=== PATIENT | female | born 1945 | race Caucasian/White ===

== ENCOUNTER 2017-07-30 11:05 | Inpatient (IN) | payer MEDICARE ==
[2017-07-30] MEDS: Sodium Chloride 0.9% 1,000 ML IV SCH ×2 (12:36→23:54)
[2017-07-30] MEDS ORDERED: Dextrose 50% Abboject 50 ML SYRINGE SLOW IVP PRN (13:42)
[2017-07-30] MEDS ORDERED: Dextrose 5% in Water 1,000 ML IV PRN (13:42)
[2017-07-30] MEDS ORDERED: Promethazine HCl 25 MG/ML VIAL IM PRN (13:42)
[2017-07-30] MEDS ORDERED: Ondansetron HCl/PF 4 MG/2 ML Vial IVP PRN (13:42)
[2017-07-30] MEDS ORDERED: metroNIDAZOLE 500 MG in Premix Bag 1 BAG IVPB SCH (14:00)
--- NOTE | 2017-07-30 14:04 | CON ---
DATE OF CONSULTATION: 07/30/2017. HISTORY OF PRESENT ILLNESS: This is a 71-year-old female who is fairly healthy, [facility] who presents with recent diagnosis of diverticulitis, a small abscess treated with antibiotic s as an outpatient and was lost to follow up for a week or so. She finally did follow up with [facility], underwent repeat scan. Repeat scan has shown air in the bladder and really no change in the abdominal abscess. She does have mild diverticular changes. Her pain is minimal in her abdome n. She does note that while on the most recent course of antibiotics she had dark brown urine and m ay be passing some air in her urine over the course of the last 48 hours. No significant diarrhea, blood in stool. She has had previous negative colonoscopy in the not too distant past. She states that the antibiotics made her sick to her stomach, most recently, sounds like she was on Flagyl and either Levaquin or Ciprofloxacin. Denies fever or chills. PAST MEDICAL HISTORY: Hypertension, hyperlipidemia, GERD. PAST SURGICAL HISTORY: She denies. MEDICINES TAKEN DAILY: Calcium, estradiol, omeprazole, Coenzyme Q, atenolol, Trental. ALLERGIES: MELOXICAM and CODEINE. SOCIAL HISTORY: No smoking, alcohol or other drugs. REVIEW OF SYSTEMS: Ten system review of systems otherwise negative unless described above. PHYSICAL EXAMINATION: VITAL SIGNS: Blood pressure 133/77, pulse 70, respirations 16. She is afebrile. HEENT: Sclerae are anicteric. Oropharynx clear. NECK: No lymphadenopathy. CHEST: Clear. HEART: Regular rate and rhythm. ABDOMEN: Soft. Labs are pending at this time. CT scan reviewed. ASSESSMENT: Acute diverticulitis, likely with a colovesical fistula. PLAN: We will switch her to Zosyn. Sounds like the Flagyl was making her have stomach upset. We w ill review the scan again with radiologist, have Urology see her for a cystoscopy to confirm what so unds like a fistula. I would recommend hopefully IV antibiotics converted to oral antibiotics and d ischarged to outpatient again with definitive left colectomy and bladder repair at a later date once the significant acute inflammation has improved.
[2017-07-30] MEDS ORDERED: Acetaminophen 500 MG TAB PO PRN (14:51)
[2017-07-30] MEDS ORDERED: cloNIDine HCl 0.1 MG TAB PO PRN (14:51)
--- NOTE | 2017-07-30 16:29 | HP ---
PRIMARY CARE PHYSICIAN: Joshua cárdenas. CHIEF COMPLAINT: Abdominal pain and fever. HISTORY OF PRESENT ILLNESS: This is a 71-year-old female who was referred to [facility] by Dr. Hao Collins with [facility] Gastroenterology service for acut e on chronic diverticulitis with questionable perforation and abscess as well as possible colonic ve sical fistula. The patient had previously been treated with oral antibiotic therapy in the last 2-3 weeks with Flagyl and quinolone; however, patient had persistent symptoms and increasing abdominal pain with fever in the last 24-48 hours. Patient followed up with GI service undergoing CT imaging showing evidence of persistent abscess in the colonic wall as well as air in the urinary bladder, co ncerning for colovesical fistula. The patient denies any specific hematochezia, but has noted in past dark brown urine while taking antibiotics. 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 The patient denies any oth er change to her medication regimen other than the recent antibiotic therapy. Currently, patient re ceiving IV Zosyn after some intolerance noted to p.o. Flagyl including abdominal pain and nausea. PAST MEDICAL HISTORY: 1. Hypertension. 2. Irritable bowel syndrome. 3. Gastroesophageal reflux disease. 4. Dyslipidemia. PAST SURGICAL HISTORY: Status post colonoscopy showing diverticular disease. CURRENT MEDICATIONS: 1. Atenolol 12.5 mg 1 tab p.o. daily. 2. Citracal 1 tablet p.o. daily. 3. Estradiol 0.5 mg p.o. daily. 4. Omeprazole 40 mg one tab p.o. daily. 5. Trental 400 mg p.o. daily. 6. Coenzyme Q10 200 mg p.o. daily. ALLERGIES: CODEINE and MELOXICAM. FAMILY HISTORY: No inheritable diseases per patient report. SOCIAL HISTORY: No alcohol, tobacco or illicit drug use. 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 The patient recently moved to [facility] in the last year after resident of [place], [place]. The patient is accompanied by her daughter in the hospital. REVIEW OF SYSTEMS: Constitutional: Weight loss or gain, ability to conduct usual activities. Skin: Rash, itching. Eyes: Double vision, pain. ENT/Mouth: Nose bleeding, neck stiffness, pain, tenderness. Cardiovascular: Palpitations, dyspnea on exertion, orthopnea. Respiratory: Shortness of breath, wheezing, cough, hemoptysis, fever or night sweats. Gastrointestinal: Poor appetite, abdominal pain, heartburn, nausea, vomiting, constipation, or diar aris. Genitourinary: Urgency, frequency, dysuria, nocturia. Musculoskeletal: Pain, swelling. Neurologic/Psychiatric: Anxiety, depression. Allergy/Immunologic: Skin rash, bleeding tendency. Otherwise negative except as stated per HPI. PHYSICAL EXAMINATION: VITAL SIGNS: On admission, blood pressure 133/77, pulse 70 and respiratory rate is 16, temperature 97.6 degrees Fahrenheit and O2 saturation 97% on room air. GENERAL APPEARANCE: This is a 71-year-old female, alert and oriented x3, pleasant and con versant, in no acute distress. HEENT: Pupils are equal, round and reactive to light and accommodation. Extraocular muscles are in tact. No scleral icterus, no conjunctival injection. Nares patent. OP is clear. Teeth in good re pair. NECK: Supple. No cervical adenopathy, no thyromegaly, no carotid bruits, no JVD appreciated. Cerv ical spine with full active and passive range of motion. CHEST: Lungs are clear to auscultation bilaterally. CARDIOVASCULAR: S1 and S2, without noted murmur. ABDOMEN: Rounded, soft with mild tenderness to palpation in the left upper and lower quadrant. No rebound appreciated. EXTREMITIES: Warm and dry with fair turgor. No clubbing, cyanosis or asymmetric edema appreciated. Pulses are palpable distally at the dorsalis pedis, posterior tibial and popliteal arteries bilate rally. Capillary refill is less than 2 seconds. NEUROLOGIC: Cranial nerves II-XII are grossly intact. No focal or lateralizing signs appreciated. PERTINENT LABORATORY AND X-RAY FINDINGS: Pending at the time of this dictation. CT of the abdomen and pelvis was showing air in the bladder with associated colonic wall abscess with mild diverticula r changes. ASSESSMENT AND PLAN: 1. 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 The patient in itiated on Zosyn 3.375 grams IV q.6 hours. General Surgery consultation pending. Continue pain cont rol. Continue intravenous fluids. 2. Abdominal pain secondary to #1. See #1 for management options. Continue to monitor clinically. Morphine sulfate 2-4 mg IV q.2 hours p.r.n. 3. Hypertension. Resume home antihypertensive regimen and monitor clinically. 4. Prophylaxis. Sequential compression devices while in bed. Pepcid 20 mg p.o. q.12 hours. 5. Code status is full. Surrogate medical decision maker is the patient's daughter.
[2017-07-30] MEDS: Piperacillin/Tazobactam 3.375 GM in Sodium Chloride 0.9% 100 ML IVPB SCH ×2 (17:04→23:55)
[2017-07-30 17:54] LABS: Bilirubin Negative (Negative); Blood, Urine Moderate (Negative); Glucose, Urine (Dipstick) Negative (Negative); Ketone, Urine Negative (Negative); Nitrite Negative (Negative); Protein, Urine (Dipstick) Negative (Neg-Trace); Urobilinogen 0.2 mg/dL (0.2-1.0)
[2017-07-30 17:56] LABS: Bacteria/HPF Rare-Few HPF (None Seen); Hyaline Casts/LPF 0-3 HYALINE CAST LPF (0-3 Hyaline); Squamous Epithelial None Seen HPF (0-3)
[2017-07-30 19:12] VITALS: BMI 26.0
[2017-07-30] MEDS ORDERED: Famotidine/PF 20 mg/2ml Vial SLOW IVP SCH (21:00)
[2017-07-30] MEDS ORDERED: Famotidine 20 MG TAB PO SCH (21:00)
[2017-07-31 04:30] LABS: #Basophils 0.1 thou/uL (0.0-0.2); #Eosinphils 0.2 thou/uL (0.0-0.7); #Lymphocytes 1.6 thou/uL (1.20-3.40); #Monocytes 0.3 thou/uL (0.11-0.59); #Neutrophils 3.5 thou/uL (1.40-6.50); %Basophils 1.1 % (0.0-1.0); %Eosinophils 3.5 % (0.0-10.0); %Lymphocytes 27.3 % (21.0-51.0); Hematocrit 33.9 % (36.0-47.0); Mean Platelet Volume 6.6 fL (7.4-10.4); Red Blood Cell (RBC) Count 3.43 mill/uL (4.20-5.40); White Blood Cell (WBC) Count 5.7 thou/uL (4.8-10.8)
[2017-07-31 04:45] LABS: Anion Gap 8 mmol/L (10-20); BUN (Urea Nitrogen) 6 mg/dL (9.8-20.1); Calc. Creatinine Clearance 80 mL/min (70-130); Calcium 8.4 mg/dL (7.8-10.44); Carbon Dioxide 27 mmol/L (23-31); Chloride 107 mmol/L (98-107); Estimated GFR-MDRD 78
[2017-07-31] MEDS: Piperacillin/Tazobactam 3.375 GM in Sodium Chloride 0.9% 100 ML IVPB SCH ×3 (05:07→17:22)
--- NOTE | 2017-07-31 06:42 | CON ---
DATE OF CONSULTATION: 07/30/2017 REASON FOR ADMISSION: Diverticulitis, nonresponsive to outpatient therapy, progressing abscess. HISTORY OF PRESENT ILLNESS: The patient is a 71-year-old female known to me from the office, who ca me to see me 2 weeks ago, who presented with left lower quadrant pain to the office, started on anti biotics and CBC revealed leukocytosis. CAT scan showed small abscess, pericolonic area. She was ca lled to come back in and she came back about 10 days later saying she is feeling much better. We re peated her CAT scan, and there was a little change seen in small abdominal abscesses, but the radiol ogist felt there was air in her bladder. She had been seen in the office couple of days before that . CAT scan was repeated and she states she was feeling much better. She finished antibiotics. We admitted to the hospital for complicated diverticulitis. I talked with her. She notes that while s he was on antibiotics, her urine was dark, but appeared to clear. She had no diarrhea, no blood in the stool. She reported the previous colonoscopy not too far in the past elsewhere. The Flagyl henry arently made her little bit nauseated. She was on Flagyl and Levaquin in the outpatient setting. P resently, she has been admitted for complicated diverticulitis with concern for ongoing abscess and possible perforation to the bladder. PAST MEDICAL HISTORY: Hypertension, hyperlipidemia, reflux. PAST SURGICAL HISTORY: None except for colonoscopy in the past several years. MEDICATIONS AT HOME: Calcium, omeprazole, estradiol, CoQ10, Tylenol. ALLERGIES: MELOXICAM and CODEINE. SOCIAL HISTORY: No smoking, drugs, or alcohol. REVIEW OF SYSTEMS: Negative for chest pain, shortness of breath, dyspnea on exertion. PHYSICAL EXAMINATION: VITAL SIGNS: Here, she is afebrile, temperature 97.5, pulse 67, blood pressure 112/68. LUNGS: Clear. HEART: Regular rate and rhythm without clicks or murmurs. ABDOMEN: Mildly tender in the left lower quadrant. LABORATORY DATA: Notable for large leukocyte esterase in the urine. PRESENT MEDICATIONS DURING THE HOSPITAL: Tylenol p.r.n., dextrose p.r.n., Pepcid p.r.n. morphine, p .r.n., Zosyn 3.375 grams IV q. 6 hours, Phenergan p.r.n., normal saline 1000 an hour, CoQ10, clonidi ne, hydralazine p.r.n. ASSESSMENT: Diverticulitis complicated with possible perforation in the bladder, CAT scan concernin g for colovesical fistula. PLAN: IV antibiotics, surgical consultation.
[2017-07-31] MEDS ORDERED: Acetaminophen 500 MG TAB PO PRN (07:26)
[2017-07-31] MEDS ORDERED: Senokot 8.6 MG TAB PO PRN (07:28)
[2017-07-31] MEDS ORDERED: Ondansetron ODT 4 MG TAB PO PRN (07:28)
[2017-07-31] MEDS ORDERED: Loratadine 10 MG TAB PO PRN (07:28)
[2017-07-31] MEDS ORDERED: Diabetic Tussin 200 MG/10 ML UDCUP PO PRN (07:28)
[2017-07-31] MEDS ORDERED: Temazepam 15 MG CAP PO PRN (07:28)
[2017-07-31] MEDS ORDERED: Sodium Chloride 0.65% Nasal 44 ML BOT EA NARE PRN (07:28)
[2017-07-31] MEDS ORDERED: Milk Of Magnesia 30 ML UDCUP PO PRN (07:28)
[2017-07-31] MEDS ORDERED: Mag-Al 1200 mg/1200 mg/30 ML UDCUP PO PRN (07:28)
[2017-07-31] MEDS: NS 0.9% w/ 40 MEQ KCL 1,000 ML IV SCH ×2 (09:12→20:19)
[2017-07-31] MEDS: Atenolol 25 MG TAB PO SCH (09:13)
[2017-07-31] MEDS: Saccharomyces boulardii 250 MG CAP PO SCH (09:13)
[2017-07-31] MEDS: Estradiol 1 MG TAB PO SCH (09:14)
[2017-07-31] MEDS: Ubidecarenone 50 MG CAP PO SCH (09:17)
[2017-07-31] MEDS: Enoxaparin Sodium 40 MG/0.4 ML SYRINGE SC SCH (09:18)
--- NOTE | 2017-07-31 11:47 | PDOC.PN ---
- Subjective Encounter Start Date: 07/31/17 Encounter Start Time: 08:10 -: old records requested/rev pt has mild LLQ pain, no fever, asking to advance diet Patient seen and examined. No new complaints. No overnight events - Objective Resuscitation Status: Resuscitation Status FULL:Full Resuscitation MAR Reviewed: Yes Vital Signs & Weight: Vital Signs (12 hours) Temp Pulse Resp BP BP Pulse Ox 07/31/17 09:13 66 118/74 07/31/17 08:00 97.7 F 66 16 96 07/31/17 07:14 97.7 F 66 16 118/74 96 07/31/17 00:00 97.7 F 69 18 119/74 95 Weight Admit Weight 161 lb 3.2 oz Weight 161 lb 3.2 oz I&O: 07/30/17 07/31/17 08/01/17 06:59 06:59 06:59 Intake Total 2039 200 Balance 2039 200 Result Diagrams: 07/31/17 03:56 07/31/17 03:56 Phys Exam - Physical Examination Constitutional: NAD HEENT: PERRLA, moist MMs, sclera anicteric Neck: no JVD, supple Respiratory: no wheezing, no rales, no rhonchi Cardiovascular: RRR, no significant murmur, no rub Gastrointestinal: soft, no distention, positive bowel sounds LLQ tenderness Musculoskeletal: no edema, pulses present Neurological: non-focal, normal sensation, moves all 4 limbs Psychiatric: normal affect, A&O x 3 Skin: no rash, normal turgor Dx/Plan (1) Acute diverticulitis of intestine Code(s): K57.92 - DVTRCLI OF INTEST, PART UNSP, W/O PERF OR ABSCESS W/O BLEED Status: Acute (2) Colovesical fistula Code(s): N32.1 - VESICOINTESTINAL FISTULA Status: Acute (3) Hypokalemia Code(s): E87.6 - HYPOKALEMIA Status: Acute (4) UTI (urinary tract infection) Status: Acute (5) Dyslipidemia Code(s): E78.5 - HYPERLIPIDEMIA, UNSPECIFIED Status: Chronic (6) GERD (gastroesophageal reflux disease) Code(s): K21.9 - GASTRO-ESOPHAGEAL REFLUX DISEASE WITHOUT ESOPHAGITIS Status: Chronic (7) Hypertension Code(s): I10 - ESSENTIAL (PRIMARY) HYPERTENSION Status: Chronic - Plan cont current plan of care, continue antibiotics * continue Zosyn * continue IVF with potassium * advance diet today * urology consult * medication reviewed as below * medically stable with current treatment * symptomatic treatment * follow urine culture. Review of Systems - Review of Systems Constitutional: negative: Fever, Chills, Sweats, Weakness, Malaise, Other ENT: negative: Ear Pain, Ear Discharge, Nose Pain, Nose Discharge, Nose Congestion, Mouth Pain, Mouth Swelling, Throat Pain, Throat Swelling, Other Respiratory: negative: Cough, Dry, Shortness of Breath, Hemoptysis, SOB with Excertion, Pleuritic Pain, Sputum, Wheezing Cardiovascular: negative: Chest Pain, Palpitations, Orthopnea, Paroxysmal Noc. Dyspnea, Edema, Light Headedness, Other Gastrointestinal: Abdominal Pain. negative: Nausea, Vomiting, Diarrhea, Constipation, Melena, Hematochezia, Other Genitourinary: negative: Dysuria, Frequency, Incontinence, Hematuria, Retention , Other Musculoskeletal: negative: Neck Pain, Shoulder Pain, Arm Pain, Back Pain, Hand Pain, Leg Pain, Foot Pain, Other - Medications/Allergies Allergies/Adverse Reactions: Allergies Allergy/AdvReac Type Severity Reaction Status Date / Time codeine Allergy Verified 07/30/17 11:49 meloxicam Allergy Verified 07/30/17 11:49 Medications: Current Medications Acetaminophen (Tylenol) 650 mg PO Q6H PRN PRN Reason: Headache/Fever or Mild Pain Al Hydroxide/Mg Hydroxide (Maalox) 15 ml PO Q4H PRN PRN Reason: Heartburn or Indigestion Albuterol/Ipratropium (Duoneb) 3 ml NEB Q4H PRN PRN Reason: Wheezing Atenolol (Tenormin) 12.5 mg PO DAILY [facility] Last Admin: 07/31/17 09:13 Dose: Not Given Clonidine HCl (Catapres) 0.1 mg PO Q4H PRN PRN Reason: Systolic BP > 180 Coenzyme Q10 (Coenzyme Q10) 200 mg PO DAILY [facility] Last Admin: 07/31/17 09:17 Dose: Not Given Dextrose/Water (Dextrose 50%) 25 gm SLOW IVP PRN PRN PRN Reason: Hypoglycemia Enoxaparin Sodium (Lovenox) 40 mg SC 0900 [facility] Last Admin: 07/31/17 09:18 Dose: Not Given Estradiol (Estrace) 0.5 mg PO DAILY [facility] Last Admin: 07/31/17 09:14 Dose: Not Given Glucagon (Glucagon) 1 mg IM PRN PRN PRN Reason: Hypoglycemia Guaifenesin (Robitussin Sf) 200 mg PO Q4H PRN PRN Reason: Cough Hydralazine HCl (Apresoline) 10 mg SLOW IVP Q4H PRN PRN Reason: SBP > 170 or DBP > 100 Dextrose/Water (D5w) 1,000 mls @ 0 mls/hr IV .Q0M PRN; As Directed PRN Reason: Hypoglycemia Piperacillin Sod/Tazobactam (Sod 3.375 gm/ Sodium Chloride) 100 mls @ 200 mls/ hr IVPB Q6HR [facility] Last Admin: 07/31/17 05:07 Dose: 100 mls Potassium Chloride/Sodium Chloride (Ns 0.9% W/ 40 Meq Kcl) 1,000 mls @ 75 mls/ hr IV .[id number] [facility] Last Admin: 07/31/17 09:12 Dose: 1,000 mls Loratadine (Claritin) 10 mg PO DAILYPRN PRN PRN Reason: Sinus Symptoms Magnesium Hydroxide (Milk Of Magnesium) 30 ml PO DAILYPRN PRN PRN Reason: Constipation Morphine Sulfate (Morphine Sulfate) 2 mg SLOW IVP Q2H PRN PRN Reason: Moderate Pain (4-6) Morphine Sulfate (Morphine Sulfate) 4 mg SLOW IVP Q2H PRN PRN Reason: Severe Pain (7-10) Ondansetron HCl (Zofran) 4 mg IVP Q6H PRN PRN Reason: Nausea/Vomiting Ondansetron HCl (Zofran Odt) 4 mg PO Q6H PRN PRN Reason: Nausea/Vomiting Pantoprazole Sodium (Protonix) 40 mg PO DAILY [facility] Last Admin: 07/31/17 09:13 Dose: Not Given Pentoxifylline (Trental) 400 mg PO DAILY [facility] Last Admin: 07/31/17 09:17 Dose: Not Given Promethazine HCl (Phenergan) 12.5 mg IM Q4H PRN PRN Reason: Nausea/Vomiting Saccharomyces Boulardii (Florastor) 250 mg PO DAILY [facility] Last Admin: 07/31/17 09:13 Dose: 250 mg Senna (Senokot) 2 tab PO HSPRN PRN PRN Reason: Constipation Sodium Chloride (Flush - Normal Saline) 10 ml IVF PRN PRN PRN Reason: Saline Flush Sodium Chloride ([place] 0.65%) 0 ml EA NARE QIDPRN PRN PRN Reason: Nasal Congestion Temazepam (Restoril) 15 mg PO HSPRN PRN PRN Reason: Insomnia
--- NOTE | 2017-07-31 13:23 | PRG ---
DATE OF SERVICE: 07/31/2017 SUBJECTIVE: Ms. Feuntes has no complaint. She has no pain. She is hungry. She is afebrile. Candis l signs are stable. Her abdomen is soft, minimally tender in the lower abdomen. LABORATORY DATA: White blood cell count is 5 and hemoglobin is 11. Potassium is 3.3 and creatinine is 0.73. UA reveals large leukocyte esterase, 7-10 RBCs, too numerous to count WBCs. ASSESSMENT: Diverticulitis acute, improved with colovesical fistula likely. PLAN: Discussed with Dr. Maria, who will see her later today. Probably can transition her from I V antibiotics to oral antibiotics over the next few days and transition her to outpatient with outpa tient cystoscopy by him prior to any operative procedure for this. My plan would be operative colec nadira plus or minus ileostomy plus or minus bladder repair down the road at some point. We will foll ow with you.
--- NOTE | 2017-07-31 20:58 | PRG ---
DATE OF SERVICE: 07/31/2017 SUBJECTIVE: Ms. Fuentes feels little bit better today. She is still in little bit of discomfort fo r bowel movements. She has been afebrile. She has met with the urologist and they are planning to do a cystoscopy in the outpatient setting. OBJECTIVE: VITAL SIGNS: Stable. LUNGS: Clear. ABDOMEN: Soft and nontender. ASSESSMENT: Diverticulitis with complications of abscess, perforation of the bladder. PLAN: The patient may be discharged in the next day or so with plans for outpatient surgery for fur ther evaluation. We will review films with Radiology and make sure we are draining the abscess that seemed enlarged in size in the second CAT scan.
[2017-08-01] MEDS: Piperacillin/Tazobactam 3.375 GM in Sodium Chloride 0.9% 100 ML IVPB SCH ×2 (00:24→06:13)
[2017-08-01 04:28] LABS: #Eosinphils 0.2 thou/uL (0.0-0.7); #Lymphocytes 1.6 thou/uL (1.20-3.40); #Monocytes 0.3 thou/uL (0.11-0.59); %Basophils 0.6 % (0.0-1.0); %Eosinophils 3.7 % (0.0-10.0); %Lymphocytes 25.4 % (21.0-51.0); %Monocytes 5.3 % (0.0-10.0); Hematocrit 34.6 % (36.0-47.0); Mean Platelet Volume 6.5 fL (7.4-10.4); Red Blood Cell (RBC) Count 3.51 mill/uL (4.20-5.40); White Blood Cell (WBC) Count 6.1 thou/uL (4.8-10.8)
[2017-08-01 04:48] LABS: Anion Gap 8 mmol/L (10-20); BUN (Urea Nitrogen) 4 mg/dL (9.8-20.1); Calc. Creatinine Clearance 78 mL/min (70-130); Calcium 8.4 mg/dL (7.8-10.44); Carbon Dioxide 25 mmol/L (23-31); Chloride 110 mmol/L (98-107); Estimated GFR-MDRD 76
--- NOTE | 2017-08-01 07:38 | PRG ---
DATE OF SERVICE: 08/01/2017 Ms. Fuentes has no complaints. She tolerated a regular diet. She has mild cramping in her left low er quadrant before bowel movements. She states that her urine is clear. She has no dysuria. PHYSICAL EXAMINATION: VITAL SIGNS: She is afebrile. Vital signs are stable. ABDOMEN: Soft, minimally tender suprapubic ASSESSMENT: Diverticulitis likely with a colovesical fistula. PLAN: I recommend discharge home. I wrote for Augmentin and Zofran. The Flagyl was making her sic k as an outpatient previously. She will follow up with me in 2 weeks. She is also going to see Dr. Maria for outpatient cystoscopy. Ultimately, she is going to need elective sigmoid colectomy wit h diverting loop ileostomy and bladder repair.
--- NOTE | 2017-08-01 08:18 | CON ---
DATE OF CONSULTATION: 07/31/2017 REASON FOR CONSULTATION: Colovesical fistula. HISTORY OF PRESENT ILLNESS: Ms. Fuentes is a 71-year-old female who has been receiving outpatient a ntibiotic therapy for diverticulitis. She was not tolerating the medicine very well and was develop ing pain in the suprapubic area. She was evaluated by CT scan, which demonstrated some air in the b ladder. She was admitted for failure to respond to outpatient therapy. From a urinary tract standp oint, she states that she did notice pneumaturia several days ago. She has also had some discolored urination off and on. Otherwise, she has no urinary complaints. She does have a urine culture at this time that is pending, but a presumptive diagnosis is a urinary tract infection without Escheric hia coli. Apparently, she has had a colonoscopy in the recent past. PAST MEDICAL HISTORY: Hypertension, hyperlipidemia, gastroesophageal reflux disease, diverticulitis . PAST SURGICAL HISTORY: Colonoscopy in the past. CURRENT MEDICATIONS: Omeprazole, estradiol, Tylenol, calcium. ALLERGIES: MELOXICAM and CODEINE. SOCIAL HISTORY: She is a nonsmoker. Denies excessive alcohol use. REVIEW OF SYSTEMS: Respiratory: No shortness of breath. Cardiovascular: No chest pain or palpita tions. Gastrointestinal: Please see history of present illness. Neurologic: Denies any dizziness . PHYSICAL EXAMINATION: GENERAL: She is awake and alert. She is in no distress. VITAL SIGNS: Temperature 97.6, blood pressure 138/82, pulse 68. HEENT: Normocephalic, atraumatic. NECK: Supple without masses. CHEST: Clear to auscultation. CARDIOVASCULAR: Regular rate and rhythm. ABDOMEN: Soft, nontender in the upper abdomen, but some mild tenderness on palpation in the lower a bdomen. EXTREMITIES: No edema. IMAGING: CT scan demonstrates a small amount of air in the bladder along with some small areas cons istent with abscess and changes consistent with diverticular disease. IMPRESSION: Ms. Fuentes is a 71-year-old female with a colovesical fistula, was diagnosed by air in the bladder without any instrumentation. This diagnosis also supported by her findings of divertic ulitis and colonic abscess. Furthermore, she had pneumaturia several days ago. This is a result of primary bladder pathology. Despite this, we will proceed with cystoscopy to rule out bladder malig ralf. I agree with General Surgery recommendations to treat with antibiotic therapy, to allow for improvement in the inflammatory changes before surgical therapy. She will eventually need surgical therapy with colon resection and bladder repair. RECOMMENDATIONS: 1. Outpatient cystoscopy with possible biopsy for any abnormal findings. 2. Bladder repair in conjunction with a colon surgery after outpatient antibiotic therapy.
[2017-08-01 08:21] VITALS: BP 123/80; TEMP 97.5
[2017-08-01] MEDS: Enoxaparin Sodium 40 MG/0.4 ML SYRINGE SC SCH (08:30)
[2017-08-01] MEDS: Estradiol 1 MG TAB PO SCH (08:30)
[2017-08-01] MEDS: Saccharomyces boulardii 250 MG CAP PO SCH ×2 (08:30→08:34)
[2017-08-01] MEDS: Atenolol 25 MG TAB PO SCH (08:30)
[2017-08-01] MEDS: Ubidecarenone 50 MG CAP PO SCH (08:31)
[2017-08-01] MEDS: NS 0.9% w/ 40 MEQ KCL 1,000 ML IV SCH (10:30)
--- NOTE | 2017-08-01 10:33 | DIS ---
PRIMARY CARE PHYSICIAN: [facility] call admission DATE OF ADMISSION: 07/30/2017 DATE OF DISCHARGE: 08/01/2017 DISCHARGE DISPOSITION: Home. PRIMARY DISCHARGE DIAGNOSES: 1. Acute diverticulitis of the intestine with abscess and colovesical fistula. 2. Urinary tract infection. 3. Hypokalemia. SECONDARY DISCHARGE DIAGNOSES: Gastroesophageal reflux disease, hypertension. PRIMARY PROCEDURE/OPERATION: None. RADIOLOGICAL INVESTIGATION: None. SIGNIFICANT LABORATORY: WBC 6.1, hemoglobin 11.1, platelet 283. Sodium 139, potassium 4.1, BUN 4, creatinine 0.75, calcium 8.4. Urinalysis suggestive of UTI. Urine culture grew E. coli. DISCHARGE MEDICATIONS: Augmentin 875 mg p.o. b.i.d. for 15 days, Florastor 250 mg p.o. daily for 15 days, Zofran ODT 4 mg q.6 h. p.r.n., atenolol 12.5 mg p.o. daily, calcium with vitamin D 1 tablet p .o. daily. Estradiol 0.5 mg p.o. daily, omeprazole 40 mg p.o. daily, Trental 400 mg p.o. daily, kacie nzyme Q10 200 mg p.o. daily. CONTRAINDICATIONS: None. CODE STATUS: FULL CODE. INPATIENT CONSULTANTS: Dr. Maria was consulted for colovesical fistula. Dr. Felix was consulte d for diverticulitis with abscess. Dr. Collins was following while in hospital. TEST RESULTS PENDING ON DISCHARGE: None. ALLERGIES: CODEINE and MOBIC. DISCHARGE PLAN: Post hospital, the patient will follow up with Dr. Jesus Maria, Dr. Aaron otero and Dr. Collins as instructed. HOSPITAL COURSE: A 71-year-old female who was admitted by Dr. Ty. The patient was sent from Dr. Collins office. This patient has a recent history of diverticulitis and she was given antibiotic the [facility] as an outpatient basis, but she did not respond to treatment and her recent CT scan as an outpa tient basis did show diverticulitis with abscess and possible colovesical fistula. This patient was sent to hospital for of admission. We treated her with Zosyn while in hospital. On discharge, we changed to Augmentin. The patient will also finish Flagyl after discharge. The patient is given Zo seth for nausea on discharge. Today, Dr. Felix, Dr. Maria and Dr. Collins cleared her for discharge and Dr. Maria was consult ed for colovesical fistula. At this point, no plan for surgery while in hospital, but she will fol low up with all consultants after discharge and they will decide about colectomy plus or minus ileos nadira and colovesical fistula repair. The patient is seen and examined at bedside today she is doing perfectly fine. She is tolerating he r diet well. She does not have any complaints. She wants to go home today. VITAL SIGNS: Currently, temperature 97.5, pulse 66, respiratory rate 20, saturation 97%, blood pres sure 123/80, weight 161 pounds. GENERAL: The patient is currently alert, awake, in no acute distress. HEAD: Normocephalic, atraumatic. LUNGS: Clear to auscultation without any rhonchi or rales. CARDIAC: S1, S2 regular without any murmur. ABDOMEN: Soft and benign. EXTREMITIES: No edema. NEUROLOGIC: Nonfocal examination. All new medication prescription given to her.
== END 2017-08-01 10:35 | disposition home or self-care (01) | DRG 392 ==
LOC: T4-A 11:05
PROVIDERS: ADMIT Family Medicine; ATTEND Family Medicine
DX: K57.20 Diverticulitis of large intestine with perforation and abscess without bleeding (principal); N32.1 Vesicointestinal fistula; N39.0 Urinary tract infection, site not specified; E87.6 Hypokalemia; K21.9 Gastro-esophageal reflux disease without esophagitis; I10 Essential (primary) hypertension; K58.8 Other irritable bowel syndrome; E78.5 Hyperlipidemia, unspecified
CPT/HCPCS: 36415; 80048; 81003; 81015; 85025; 87077; 87086; 87186; 90471; 90732; G0009; J1650; J2543; J7050

== ENCOUNTER 2017-09-16 13:27 | Outpatient (CLI) | payer MEDICARE | END 2017-09-16 13:28 | disposition home or self-care (01) | LOC: LABBT 13:27 | PROVIDERS: ATTEND Surgery | DX: Z01.818 Encounter for other preprocedural examination (principal); N32.1 Vesicointestinal fistula ==

== ENCOUNTER 2017-09-17 10:04 | Outpatient (CLI) | payer MEDICARE ==
[2017-09-17 10:46] LABS: #Basophils 0.1 thou/uL (0.0-0.2); #Eosinphils 0.1 thou/uL (0.0-0.7); #Lymphocytes 1.6 thou/uL (1.20-3.40); #Monocytes 0.3 thou/uL (0.11-0.59); %Basophils 1.2 % (0.0-1.0); %Eosinophils 1.8 % (0.0-10.0); %Lymphocytes 30.8 % (21.0-51.0); %Monocytes 5.8 % (0.0-10.0); Hematocrit 37.7 % (36.0-47.0); Mean Platelet Volume 6.6 fL (7.4-10.4); Red Blood Cell (RBC) Count 3.77 mill/uL (4.20-5.40)
[2017-09-17 11:05] LABS: Hemoglobin A1c 5.1 % (4.0-6.0)
[2017-09-17 11:18] LABS: Anion Gap 11 mmol/L (10-20); BUN (Urea Nitrogen) 10 mg/dL (9.8-20.1); Calc. Creatinine Clearance 0 mL/min (70-130); Calcium 9.1 mg/dL (7.8-10.44); Carbon Dioxide 27 mmol/L (23-31); Chloride 106 mmol/L (98-107); Estimated GFR-MDRD 80
--- NOTE | 2017-09-21 08:43 | EKG ---
Test Reason : Blood Pressure : / mmHG Vent. Rate : 060 BPM Atrial Rate : 060 BPM P-R Int : 134 ms QRS Dur : 078 ms QT Int : 412 ms P-R-T Axes : 058 047 052 degrees QTc Int : 412 ms Normal sinus rhythm Normal ECG No previous ECGs available Confirmed by Gianna UNGER ([id number]) on 09/21/2017 8:43:19 AM Referred By: BUNNY Confirmed By:Gianna UNGER
== END 2017-09-17 10:05 | disposition home or self-care (01) ==
LOC: LABBT 10:04
PROVIDERS: ATTEND Surgery
DX: Z01.818 Encounter for other preprocedural examination (principal); N32.1 Vesicointestinal fistula
CPT/HCPCS: 80048; 83036; 85025; 93005; 93010

== ENCOUNTER 2017-09-23 06:51 | Inpatient (IN) | payer MEDICARE ==
[2017-09-23] MEDS ORDERED: Fentanyl 100 MCG/2 ML VIAL ONE ×5 (07:09→13:01)
[2017-09-23] MEDS ORDERED: Albumin 5% 500 ML ONE (07:09)
[2017-09-23] MEDS ORDERED: cefOXitin Sodium 2 GM, Syringe 1 ML in Sterile Water 10 ML SLOW IVP SCH (07:15)
[2017-09-23] MEDS ORDERED: Bupivacaine/Epinephrine 0.25% 30 ML VIAL ONE (07:36)
[2017-09-23] MEDS ORDERED: Dexamethasone 4 mg/ml Vial ONE (07:52)
[2017-09-23] MEDS ORDERED: Midazolam HCl 2 mg/2 ml Vial ONE ×2 (07:52→08:50)
[2017-09-23] MEDS ORDERED: Fentanyl 250 MCG/5 ML VIAL ONE (08:48)
[2017-09-23] MEDS ORDERED: Promethazine HCl 25 MG/ML VIAL SLOW IVP PRN (12:10)
[2017-09-23] MEDS ORDERED: Promethazine HCl 25 MG/ML VIAL IM PRN ×2 (12:10→14:08)
[2017-09-23] MEDS ORDERED: Ondansetron HCl/PF 4 MG/2 ML Vial IVP PRN ×2 (12:10→14:08)
[2017-09-23] MEDS ORDERED: Bupivacaine PF 0.5% 30 ML VIAL ONE (12:58)
[2017-09-23] MEDS ORDERED: Bupivacaine HCl 0.5%/Epinephrine 1:200,000/PF 30 ml Vial ONE (12:58)
[2017-09-23] MEDS ORDERED: hydrALAZINE 20 MG/ML VIAL SLOW IVP PRN (14:08)
[2017-09-23] MEDS ORDERED: PHENYLEPHRINE-NS 100 MCG/ML 10 ML SYRINGE ONE (14:29)
[2017-09-23] MEDS ORDERED: Ondansetron HCl/PF 4 MG/2 ML Vial ONE (14:29)
[2017-09-23] MEDS ORDERED: Propofol 200 MG/20 ML VIAL ONE (14:29)
[2017-09-23] MEDS ORDERED: Vecuronium 10 MG VIAL ONE (14:29)
[2017-09-23] MEDS ORDERED: Ketorolac Tromethamine 30 MG/ML VIAL ONE (14:29)
[2017-09-23] MEDS ORDERED: Lidocaine 1% PF 5 ML VIAL ONE (14:29)
[2017-09-23] MEDS ORDERED: Glycopyrrolate 0.2 MG/ML 5 ML SYRINGE ONE (14:29)
[2017-09-23] MEDS: Sodium Chloride 0.9% 1,000 ML IV SCH ×2 (14:52→23:08)
[2017-09-23] MEDS: Fentanyl 100 MCG/2 ML VIAL SLOW IVP PRN ×3 (15:27→23:11)
[2017-09-23 16:24] VITALS: BMI 23.7
[2017-09-23] MEDS: Acetaminophen 1,000 MG in Premix Bag 1 BAG IVPB SCH ×2 (17:27→23:09)
[2017-09-23] MEDS: cefOXitin Sodium 2 GM, Syringe 1 ML in Sterile Water 10 ML SLOW IVP SCH (17:48)
[2017-09-23] MEDS: Enoxaparin Sodium 40 MG/0.4 ML SYRINGE SC SCH (19:48)
[2017-09-23] MEDS: Famotidine 20 MG TAB PO SCH (19:48)
[2017-09-23] MEDS: Famotidine/PF 20 mg/2ml Vial SLOW IVP SCH (19:50)
--- NOTE | 2017-09-23 23:59 | OP ---
DATE OF PROCEDURE: 09/23/2017 PREOPERATIVE DIAGNOSIS: Chronic sigmoid diverticulitis with colovesical fistula. POSTOPERATIVE DIAGNOSIS: Chronic sigmoid diverticulitis with colovesical fistula. PROCEDURES: 1. Laparoscopic left colectomy with low pelvic anastomosis. 2. Laparoscopic mobilization of splenic flexure. 3. Diverting loop ileostomy. SURGEON: Carl Felix MD ANESTHESIA: General. ESTIMATED BLOOD LOSS: Minimal. COMPLICATIONS: None. FINDINGS: After the colon is dissected off the left lateral bladder, Dr. Maria presents for testin g by filling the bladder up with saline. There is no obvious leakage. He recommended keeping the ca theter in for 2 days and then having a CT cystogram performed. INDICATION: The patient is a 71-year-old female with recent hospitalization, multiple UTIs, and foun d to have a colovesical fistula. She had cystoscopy performed in Dr. Maria's office, confirming th e fistula. She had a colonoscopy performed yesterday under same prep by Dr. Collins with no obvious m alignancy. Risks, benefits of surgery were discussed including bleeding, infection, scarring. She u nderwent an anastomotic leak need for further surgery or revision, need for possible ileostomy. She did undergo mechanical and antibiotic bowel prep. TECHNIQUE: The patient was taken to the operating room and placed supine on the table after general anesthetic was obtained, a Boykin was placed in lithotomy position. OG tube used to decompress the st omach. The abdomen was prepped and draped in a sterile fashion. Left subcostal 5-mm Optiview trocar was placed in the usual fashion and high-flow pneumoperitoneum was obtained. A 5 mm ports were plac ed to the right of the umbilicus in the right lower quadrant, suprapubic, and in the left lower quadr ant. The patient was placed in Trendelenburg position. The sigmoid colon was able to be bluntly dis sected off the left lateral pelvic sidewall and posterior bladder under some difficulty. There are s ome adhesions of the small bowel to the medial sigmoid, they were taken down using sharp dissection. The mesentery was incised on the medial side and a window made to the lateral side of the sigmoid co laurita and the ureter was found in order to be excluded from further dissection or injury. Ultimately, the sigmoid colon was able to be bluntly dissected off the posterior pelvic sidewall and posterior bl adder. Dissection was taken down into the pelvis. LigaSure was used to take the mesentery down and up, laparoscopic stapler was fired across the upper rectum. This allows the sigmoid colon to be flip ped up and mobilization of the splenic flexure was then performed in the usual fashion. The left ure ter was found and excluded from this full dissection. Dr. Maria was present and he filled the blad kvng up with saline and under direct vision, there was no obvious leakage of saline into the abdominal cavity. He then decompressed the bladder again and Boykin was left in place. The greater omentum wa s taken off the splenic flexure of colon to allow it to reach down into the pelvis. After the full s plenic flexure mobilization is performed, the left lower quadrant 5-mm port is enlarged and the Zander s wound retractor was placed. The left colon was able to be brought up through this wound. Location for the proximal anastomosis is found and a colotomy was made just distal to the 31 anvil was passed proximally. Stapler was fired proximal to the colotomy. The sharp pin was brought out on the antim esenteric surface of the colon above. This would be the upper portion of the low pelvic anastomosis. The specimen is sent to pathology for final diagnosis. The anvil coming out of the proximal colon, its dropped back into the abdominal cavity. The small bowel in the area where the sharp dissection was performed, it was brought up through the wound and a few are oversewn using silk suture. P neumoinsufflation was reobtained. The anvil for the EEA is brought up through the anus, its sharp pi n brought out on an antimesenteric surface of the colon below, connected to the sharp pin from above the stapler was fired down into the green zone and fired. There were two good rings of tissue was ob tained. There was no tension on the anastomosis. There is no ongoing bleeding in the abdomen. Esther use of the severe inflammatory nature in the pelvis, decision was made to divert with ostomy. 3-4 in ches before the ileocecal valve, the [place] was used to grasp the small bowel. An incision is made in the right lower quadrant, a cruciate incision was made in the fascia, a [place] was placed through the fascia and used to grab the small bowel and brought it up through maintaining its orientation. All the other ports were then removed and pneumoinsufflation was let down. The Gustavo wound retracto r was removed. The gown and all systems changed, gown and gloves. The fascia was closed in the left lower quadrant in 2 layers. The wound was irrigated copiously using sterile solution and closed usi ng 3-0 Vicryl, 4-0 Monocryl, and Dermabond. The other incisions were closed using 4-0 Monocryl and D ermabond. The loop ileostomy was matured in the usual fashion using 3-0 Vicryl, a big red rubber was used as an ostomy bar. Ostomy devices placed. The patient was en route to recovery in stable condi tion. All instrument counts, needle counts, and lap counts are correct.
[2017-09-24] MEDS: cefOXitin Sodium 2 GM, Syringe 1 ML in Sterile Water 10 ML SLOW IVP SCH (02:04)
[2017-09-24] MEDS: Acetaminophen 1,000 MG in Premix Bag 1 BAG IVPB SCH ×2 (05:10→12:05)
[2017-09-24 05:35] LABS: #Lymphocytes 1.2 thou/uL (1.20-3.40); #Monocytes 0.6 thou/uL (0.11-0.59); #Neutrophils 6.8 thou/uL (1.40-6.50); %Basophils 0.2 % (0.0-1.0); %Eosinophils 0.4 % (0.0-10.0); %Lymphocytes 14.2 % (21.0-51.0); %Monocytes 6.6 % (0.0-10.0); Hematocrit 29.5 % (36.0-47.0); Mean Platelet Volume 7.5 fL (7.4-10.4); Red Blood Cell (RBC) Count 2.93 mill/uL (4.20-5.40); White Blood Cell (WBC) Count 8.7 thou/uL (4.8-10.8)
[2017-09-24 06:01] LABS: Anion Gap 9 mmol/L (10-20); BUN (Urea Nitrogen) 6 mg/dL (9.8-20.1); Calc. Creatinine Clearance 76 mL/min (70-130); Carbon Dioxide 25 mmol/L (23-31); Chloride 108 mmol/L (98-107); Estimated GFR-MDRD 82
[2017-09-24] MEDS: Famotidine 20 MG TAB PO SCH ×2 (08:54→20:05)
[2017-09-24] MEDS: Atenolol 25 MG TAB PO SCH (08:55)
[2017-09-24] MEDS: Famotidine/PF 20 mg/2ml Vial SLOW IVP SCH ×2 (08:56→20:05)
[2017-09-24] MEDS: Sodium Chloride 0.9% 1,000 ML IV SCH (09:16)
[2017-09-24] MEDS: Fentanyl 100 MCG/2 ML VIAL SLOW IVP PRN (11:58)
[2017-09-24] MEDS ORDERED: Sodium Chloride 0.9% 1,000 ML IV SCH (14:03)
[2017-09-24] MEDS ORDERED: HYDROcodone/Acetaminophen 10/325 mg Tablet PO PRN (14:03)
[2017-09-24] MEDS: HYDROcodone/Acetaminophen 10/325 mg Tablet PO PRN (15:48)
[2017-09-24] MEDS: Enoxaparin Sodium 40 MG/0.4 ML SYRINGE SC SCH (20:07)
[2017-09-25] MEDS: HYDROcodone/Acetaminophen 10/325 mg Tablet PO PRN ×3 (01:42→20:20)
[2017-09-25] MEDS: Famotidine 20 MG TAB PO SCH ×2 (08:48→20:23)
[2017-09-25] MEDS: Famotidine/PF 20 mg/2ml Vial SLOW IVP SCH ×2 (08:49→20:24)
[2017-09-25] MEDS: Atenolol 25 MG TAB PO SCH (08:49)
--- NOTE | 2017-09-25 12:10 | PRG ---
DATE OF SERVICE: 09/25/2017 SUBJECTIVE: Judy Fuentes postop day #2, left colectomy with ileostomy. Ms. Fuentes is doing well. She has no complaints today, tolerated a full liquid diet without nausea. No significant abdominal pain. She is already having stool output into her ileostomy bag. OBJECTIVE: VITAL SIGNS: She is afebrile. Her vital signs are stable. Urine output is good and clear. ABDOMEN: Soft. Wounds are healing well. There is air and stool in her ostomy bag. ASSESSMENT: Postoperative day #2 laparoscopic sigmoid colectomy with loop ileostomy. PLAN: Cystogram today to confirm no bladder leak followed by, then we can discontinue the catheter l ikely home tomorrow. We will do ostomy teaching as well.
--- NOTE | 2017-09-25 16:01 | RAD ---
RETROGRADE CYSTOGRAM: Date: 09/25/17 HISTORY: Colovesical fistula. Evaluate for leak. Patient is post day 2. COMPARISON: None. EXPOSURE: 0.8 minutes. 37.71 mGy*cm^2. FINDINGS: Initial oil well logger pelvic radiograph demonstrates a suture chain. Colostomy in the right lower quadrant is identified. In a retrograde fashion, the patient was administered a total of 50 mL Cysto-Conray. Patient was slig htly rolled to the left and right. There is no evidence of leak or extravasation while filling the bl adder. The bladder was subsequently emptied. A trace amount of contrast was still present in the urin cedrick bladder. No leak or extravasation. IMPRESSION: No leak or extravasation. Patient was only given 50 mL of contrast. Additional contrast could not be given due to patient discomfort. Results of study discussed with Dr. Felix on 09/25/17 at 1506 hours. CODE CR. POS: [facility]
[2017-09-25] MEDS: Enoxaparin Sodium 40 MG/0.4 ML SYRINGE SC SCH (20:23)
[2017-09-26] MEDS: HYDROcodone/Acetaminophen 10/325 mg Tablet PO PRN ×2 (01:59→09:28)
[2017-09-26] MEDS ORDERED: Atenolol 25 MG TAB PO SCH (09:00)
[2017-09-26] MEDS ORDERED: Estradiol 1 MG TAB PO SCH (09:00)
[2017-09-26] MEDS: Famotidine 20 MG TAB PO SCH (09:27)
[2017-09-26] MEDS: Famotidine/PF 20 mg/2ml Vial SLOW IVP SCH (09:29)
--- NOTE | 2017-09-26 13:49 | PRG ---
DATE OF SERVICE: 09/26/2017 SUBJECTIVE: Ms. Fuentes is doing well today, postop day #3, her catheter has been removed. She has not voided yet. Her cystogram yesterday showed no leak. She is ambulatory, tolerating full liquid d iet. Pain is controlled. PHYSICAL EXAMINATION: VITAL SIGNS: Stable. ABDOMEN: Soft. Her wounds are healing well. There is no infection. Her ostomy in the right lower quadrant. There is stool and air in the bag. ASSESSMENT: Postop day #3 left colectomy, diverting ileostomy. PLAN: Home with home health for ostomy care. Follow up with me in 2 weeks. Plan ileostomy takedown in 6 weeks.
[2017-09-26 13:58] VITALS: BP 125/71; TEMP 98.5
== END 2017-09-26 16:39 | disposition home health service (06) | DRG 330 ==
LOC: SDC 06:51 → SURG A 11:50
PROVIDERS: ADMIT Surgery; ATTEND Surgery
PROC: 0DTG4ZZ Resection of Left Large Intestine, Percutaneous Endoscopic Approach (ICD-10-PCS; principal; 2017-09-23)
PROC: 0D1B0Z4 Bypass Ileum to Cutaneous, Open Approach (ICD-10-PCS; 2017-09-23)
PROC: 3E0T3BZ Introduction of Anesthetic Agent into Peripheral Nerves and Plexi, Percutaneous Approach (ICD-10-PCS; 2017-09-23)
DX: K57.32 Diverticulitis of large intestine without perforation or abscess without bleeding (principal); N32.1 Vesicointestinal fistula; Z87.891 Personal history of nicotine dependence
CPT/HCPCS: 36415; 36416; 51600; 74430; 80048; 85025; 88307; A4216; J0131; J0670; J0694; J1100; J1650; J1885; J2001; J2250; J2405; J2704; J3010; J7050; P9045; Q9968; S0020; S0028

== ENCOUNTER 2017-10-31 09:02 | Outpatient (CLI) | payer MEDICARE ==
--- NOTE | 2017-10-31 10:45 | RAD ---
KUB: CLINICAL HISTORY: Vesicointestinal fistula. FINDINGS: The patient was scheduled for a barium enema, although the patient experienced pain as well as rectal bleeding upon initial attempt at inserting the catheter and, therefore, the procedure was terminated at that point. Branch Coordinator image of the abdomen and pelvis reveals anastomotic suture material overlying the midline of th e pelvis. There are metallic clips in the right upper quadrant. The bowel gas pattern is nonobstruc arielle. Artifact from ostomy overlies the right lower quadrant. IMPRESSION: 1. Nonobstructed bowel gas pattern. 2. Anastomotic suture overlying the pelvis. 3. The patient could not tolerate barium enema procedure at this time, and therefore will be resched uled. POS: [facility]
== END 2017-10-31 09:03 | disposition home or self-care (01) ==
LOC: RAD 09:02
PROVIDERS: ATTEND Surgery
DX: N32.1 Vesicointestinal fistula (principal)
CPT/HCPCS: 74018; 74280

== ENCOUNTER 2017-11-05 11:04 | Inpatient (IN) | payer MEDICARE ==
[2017-11-04 15:47] VITALS: BMI 21.6
[2017-11-05] MEDS ORDERED: cefOXitin 2 GM, Syringe 1 ML in Sterile Water 10 ML SLOW IVP SCH (11:45)
[2017-11-05] MEDS ORDERED: HYDROmorphone 0.5 MG/0.5 ML SYRINGE ONE ×5 (13:34→16:55)
[2017-11-05] MEDS ORDERED: Fentanyl 100 MCG/2 ML VIAL ONE ×3 (13:34→15:40)
[2017-11-05] MEDS ORDERED: Dexamethasone 20 MG/5 ML VIAL ONE (14:04)
[2017-11-05] MEDS ORDERED: ePHEDrine/0.9% NaCl/PF SYRINGE 50 mg/10 ml ONE (14:04)
[2017-11-05] MEDS ORDERED: PROPOFOL 200 MG/20 ML VIAL ONE (14:04)
[2017-11-05] MEDS ORDERED: PHENYLEPHRINE-NS 100 MCG/ML 10 ML SYRINGE ONE (14:04)
[2017-11-05] MEDS ORDERED: Succinylcholine Chloride 20 MG/ML 10 ml SYRINGE FS ONE (14:04)
[2017-11-05] MEDS ORDERED: Ondansetron HCl/PF 4 MG/2 ML Vial ONE (14:04)
[2017-11-05] MEDS ORDERED: Glycopyrrolate 0.2 MG/ML 5 ML SYRINGE ONE (14:04)
[2017-11-05] MEDS ORDERED: Metoclopramide HCl 10 MG/2 ML VIAL ONE (14:04)
[2017-11-05] MEDS ORDERED: Ketorolac Tromethamine 30 MG/ML VIAL ONE (14:04)
[2017-11-05] MEDS ORDERED: Lidocaine 1% PF 5 ML VIAL ONE (14:04)
[2017-11-05] MEDS ORDERED: Ondansetron HCl/PF 4 MG/2 ML Vial IVP PRN (15:27)
[2017-11-05] MEDS ORDERED: Fentanyl 100 MCG/2 ML VIAL SLOW IVP PRN (17:32)
[2017-11-05] MEDS ORDERED: Promethazine HCl 25 MG/ML VIAL IM PRN (17:32)
[2017-11-05] MEDS ORDERED: hydrALAZINE 20 MG/ML VIAL SLOW IVP PRN (17:32)
[2017-11-05] MEDS: D5 1/2 NS w/20 mEq KCL 1,000 ML IV SCH (18:52)
[2017-11-05] MEDS: Acetaminophen 1,000 MG in Premix Bag 1 BAG IVPB SCH (20:16)
[2017-11-05] MEDS: Famotidine/PF 20 mg/2ml Vial SLOW IVP SCH (20:17)
[2017-11-05] MEDS: Enoxaparin Sodium 40 MG/0.4 ML SYRINGE SC SCH (20:17)
[2017-11-05] MEDS: Famotidine 20 MG TAB PO SCH (20:17)
--- NOTE | 2017-11-05 20:49 | OP ---
DATE OF PROCEDURE: 11/05/2017 PREOPERATIVE DIAGNOSIS: Chronic diverticulitis, attention to ileostomy. POSTOPERATIVE DIAGNOSIS: Chronic diverticulitis, attention to ileostomy. PROCEDURE: Ileostomy takedown by small bowel resection and anastomosis. SURGEON: Carl Felix M.D. ANESTHESIA: General. ESTIMATED BLOOD LOSS: Minimal. COMPLICATIONS: None. SPECIMEN: None. FINDINGS: Chronic diverticulitis. INDICATION: The patient is a 72-year-old female who is status post colectomy with anastomosis in the low pelvis protected by loop ileostomy. She also had repair of colovesical fistula at her previous operation. She presents today well healed from that surgery. TECHNIQUE: The patient was taken to the operating room and laid supine on the operating room supine on the table. After general anesthetic was obtained, she was placed in lithotomy position. Exam und er anesthesia reveals to be a small stricture at the anastomosis. This is finger dilated. An EGD sc ope was passed up into her anal canal to reveal no significant stenosis or pathology at the anastomos is. The scope was able to be placed into the proximal colon without difficulty. The scope was remov ed. The patient is then placed supine and her ostomy device removed across the mucosa sewn using javi k suture. Ostomy device is removed and the abdomen was prepped and draped in a sterile fashion. The ostomy was ellipsed out and dissection was performed all the way down into the abdominal cavity. Th ere were some adhesions to the edges of the fascia. Once the abdominal cavity was entered, there wer e no adhesions. The small bowel proximal and distal was able to be brought up into the wound. MIRANDA-7 5 was fired across proximal and distal to the ostomy in the area of scarring in the bowel. The bowel proximal and distal was then good without evidence of any injury or stricture. A [id number] anast omosis using MIRANDA-75 stapler was performed. The common enterotomy was closed using TA-60. The crutch and each corner oversewn using silk suture. The mesenteric defect was closed using silk suture and this was placed back into the abdominal cavity. There was no bleeding. The fascia was closed in two layers using PDS sutures, subcutaneous tissues were irrigated. The skin was closed using pursestrin g of Prolene. A Cesia drain was left in the middle wound. Sterile dressings were placed. Patient went to recovery in stable condition. All instrument counts, needle counts, and lap counts were cor rect.
[2017-11-05] MEDS ORDERED: cefOXitin 2 GM in Sodium Chloride 0.9% 100 ML IVPB SCH (22:00)
[2017-11-05] MEDS: cefOXitin 2 GM, Syringe 1 ML in Sterile Water 10 ML SLOW IVP SCH (22:11)
[2017-11-06] MEDS: D5 1/2 NS w/20 mEq KCL 1,000 ML IV SCH ×2 (02:43→12:53)
[2017-11-06] MEDS: Acetaminophen 1,000 MG in Premix Bag 1 BAG IVPB SCH ×4 (02:44→14:49)
[2017-11-06] MEDS: Ondansetron HCl/PF 4 MG/2 ML Vial IVP PRN ×2 (04:45→21:40)
[2017-11-06 05:46] LABS: #Lymphocytes 1.3 thou/uL (1.20-3.40); #Monocytes 0.3 thou/uL (0.11-0.59); #Neutrophils 7.7 thou/uL (1.40-6.50); %Basophils 0.2 % (0.0-1.0); %Eosinophils 0.2 % (0.0-10.0); %Lymphocytes 14.1 % (21.0-51.0); %Monocytes 3.7 % (0.0-10.0); %Neutrophils 81.8 % (42.0-75.0); Hemoglobin 10.5 g/dL (12.0-16.0); Mean Corpuscular HGB CONC 31.9 g/dL (32.0-36.0); Mean Corpuscular Hemoglobin 31.9 pg (27.0-31.0); Mean Platelet Volume 6.9 fL (7.4-10.4); Platelet Count 197 thou/uL (130-400); RBC Distribution Width 11.8 % (11.5-14.5); Red Blood Cell (RBC) Count 3.29 mill/uL (4.20-5.40); White Blood Cell (WBC) Count 9.4 thou/uL (4.8-10.8)
[2017-11-06 05:59] LABS: Anion Gap 10 mmol/L (10-20); BUN (Urea Nitrogen) 12 mg/dL (9.8-20.1); Calc. Creatinine Clearance 57 mL/min (70-130); Calcium 8.8 mg/dL (7.8-10.44); Carbon Dioxide 24 mmol/L (23-31); Chloride 106 mmol/L (98-107); Estimated GFR-MDRD 66; Glucose 176 mg/dL (83-110); Potassium 4.7 mmol/L (3.5-5.1); Sodium 135 mmol/L (136-145)
[2017-11-06] MEDS: cefOXitin 2 GM, Syringe 1 ML in Sterile Water 10 ML SLOW IVP SCH (06:35)
[2017-11-06] MEDS: Fentanyl 100 MCG/2 ML VIAL SLOW IVP PRN ×2 (07:11→14:55)
[2017-11-06] MEDS: Famotidine/PF 20 mg/2ml Vial SLOW IVP SCH ×2 (08:47→21:36)
[2017-11-06] MEDS: Estradiol 1 MG TAB PO SCH ×2 (08:49→08:50)
[2017-11-06] MEDS: Atenolol 25 MG TAB PO SCH (08:49)
[2017-11-06] MEDS: Famotidine 20 MG TAB PO SCH ×2 (08:50→21:36)
[2017-11-06] MEDS ORDERED: traMADol HCl 50 MG TAB PO PRN ×4 (10:43→11:46)
--- NOTE | 2017-11-06 10:56 | PRG ---
DATE OF SERVICE: 11/06/2017 SUBJECTIVE: Postop day #1, ileostomy takedown. Ms. Fuentes is doing well. She is having mild nausea this morning. She is ambulating without difficulty. PHYSICAL EXAMINATION: VITAL SIGNS: She is afebrile. Her vital signs are stable. ABDOMEN: Soft, minimally distended, right lower quadrant dressing is intact. LABORATORY DATA: White blood cell count is 9, hemoglobin 10, creatinine 0.84. ASSESSMENT: Postop day #1 ileostomy takedown. PLAN: Full liquids. Potentially home tomorrow if doing well.
[2017-11-06] MEDS: Enoxaparin Sodium 40 MG/0.4 ML SYRINGE SC SCH (21:40)
[2017-11-07 07:44] VITALS: BP 131/68; TEMP 98.3
[2017-11-07] MEDS: Atenolol 25 MG TAB PO SCH (08:58)
[2017-11-07] MEDS: Famotidine 20 MG TAB PO SCH (08:59)
[2017-11-07] MEDS: Estradiol 1 MG TAB PO SCH (08:59)
[2017-11-07] MEDS: Famotidine/PF 20 mg/2ml Vial SLOW IVP SCH (08:59)
--- NOTE | 2017-11-07 10:17 | PRG ---
DATE OF SERVICE: 11/07/2017 Postop day #2, ileostomy takedown. Ms. Fuentes is doing well. She is having mild nausea, but she de nies any abdominal pain. PHYSICAL EXAMINATION: VITAL SIGNS: She is afebrile. Vital signs are stable. ABDOMEN: Soft. She has got active bowel sounds. Her wounds are healing well. ASSESSMENT: Postop day 2 ileostomy takedown. PLAN: Likely home later today. We will send on tramadol and Zofran.
== END 2017-11-07 14:06 | disposition home or self-care (01) | DRG 330 ==
LOC: SURG A 11:04
PROVIDERS: ADMIT Surgery; ATTEND Surgery
PROC: 0DBB0ZZ Excision of Ileum, Open Approach (ICD-10-PCS; principal; 2017-11-05)
DX: Z43.2 Encounter for attention to ileostomy (principal); K57.92 Diverticulitis of intestine, part unspecified, without perforation or abscess without bleeding; Z87.891 Personal history of nicotine dependence
CPT/HCPCS: 36415; 80048; 85025; A4216; J0131; J0694; J1100; J1170; J1650; J1885; J2001; J2405; J2704; J2765; J3010; S0028